=== PATIENT | female | born 1975 | race Asian ===

== ENCOUNTER 2017-04-05 06:05 | Inpatient (IN) | payer OTHER ==
[2017-04-05 08:43] VITALS: BMI 33.7
[2017-04-05] MEDS ORDERED: ELECTROLYTE-148 SOLN 1,000 ML IV SCH (08:45)
--- NOTE | 2017-04-05 08:48 | HP ---
Past Medical History - Primary Care Physician PCP:: Matt Guerrero - Admission Chief Complaint: 41yo P1 with at EGA 39w 3d admitted with spontaneous labor. 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: No: Alzheimer's, CVA, Dementia, Migraine, Multiple Sclerosis, Peripheral Neuropathy, Parkinson's, Seizure, Syncope, TIA, Vertigo, Other Cardiovascular: No: AFIB, Aneurysm, Aortic Insufficiency, Aortic Stenosis, CAD, CHF, Deep Vein Thrombosis, HTN, Hyperlipdemia, TN, Mitral Insufficiency, Mitral Stenosis, Murmur, Pulmonary Hypertension, Other Pulmonary: No: Asthma, Bronchitis, Cancer, COPD, O2 Dependent, Pneumonia, Previously Intubated, Pulmonary Embolus, Pulmonary Fibrosis, Sleep Apnea, Other Gastrointestinal: No: Ascites, Cancer, Constipation, Crohn's Disease, Diverticulitis, Diverticulosis, Esophageal Varices, Gastritis, GERD, GI Bleed, Hemorrhoids, Hiatal Hernia, Inflamatory Bowel Disease, Irritable Bowel Disease, Pancreatitis, Peptic Ulcer Disease, Ulcerative Colitis, Other Hepatobiliary: No: Cirrhosis, Cholelithiasis, Cholecystitis, Choledocholithiasis , Hepatitis A, Hepatitis B, Hepatitis C, Other Renal/: No: Renal Failure, Renal Inusuff, BPH, Cancer, Hematuria, Hemodialysis , Neurogenic Bladder, Renal Calculi, UTI, Other ...Para: 1 ...Induced : 1 Heme/Onc: Yes: Anemia Infectious Disease: No: AIDS, C-Diff, Herpes Zoster, HIV, MRSA, STD's, Tuberculosis, VREF, Other Psych: No: Addictions, Anxiety, Bipolar, Depression, Panic, Psychosis, Schizophrenia, Other Musculoskeletal: No: Bursitis, Chronic low back pain, Hemiparesis, Hemiplegia, Osteoarthritis, Paraplegia, Other Rheumatology: No: Fibromyalgia, Gout, Lupus, Rheumatoid Arthritis, Sarcoidosis, Vasculitis, Other ENT: No: Allergic Rhinitis, Sinusitis, Other Endocrine: No: Lancaster's Disease, Jericho's Disease, Diabetes Insipidus, Diabetes Mellitus, Hyperparathyroidism, Hyperthyroidism, Hypothyroidism, Osteopenia, SIADH, Other Dermatology: No: Basal Cell, Cellulitis, Eczema, Melanoma, Psoriasis, Squamous Cell, Other - Past Surgical History Past Surgical History: Yes: Mastectomy Hx Myomectomy: No Hx Transabdominal Cerclage: No Additional Surgical History: D&E x 1 - Smoking History Smoking history: Never smoked Have you smoked in the past 12 months: No - Alcohol/Substance Use Hx Alcohol Use: No History of Substance Use: reports: None - Social History Usual Living Arrangement: Yes: With Spouse, With Child ADL: Independent 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 History of Recent Travel: No Home Medications - Allergies Allergies/Adverse Reactions: Allergies Allergy/AdvReac Type Severity Reaction Status Date / Time No Known Allergies Allergy Verified 02/23/17 13:51 - Home Medications Home Medications: Ambulatory Orders Vit #108/Iron/FA [ One Tablet] 1 tab PO DAILY 02/23/17 Family Disease History - Family Disease History Family History: Unremarkable Review of Systems - Review of Systems Constitutional: reports: Other (labor) Eyes: reports: No Symptoms HENT: reports: No Symptoms Neck: reports: No Symptoms Cardiovascular: reports: No Symptoms Respiratory: reports: No Symptoms Gastrointestinal: reports: No Symptoms Genitourinary: reports: No Symptoms Breasts: reports: No Symptoms Reported Musculoskeletal: reports: No Symptoms Integumentary: reports: No Symptoms Neurological: reports: No Symptoms Endocrine: reports: No Symptoms Hematology/Lymphatic: reports: No Symptoms Psychiatric: reports: No Symptoms Pain Intensity: 8 Physical Exam - Maternity Vital Signs: Vital Signs Temperature 98.2 F 04/05/17 08:24 Pulse Rate 96 H 04/05/17 08:24 Respiratory Rate 20 04/05/17 08:24 Blood Pressure 128/76 04/05/17 08:24 O2 Sat by Pulse Oximetry (%) Constitutional: Yes: Well Nourished, No Distress, Calm Eyes: Yes: WNL, Conjunctiva Clear HENT: Yes: WNL, Atraumatic, Normocephalic Neck: Yes: WNL, Supple, Trachea Midline Cardiovascular: Yes: WNL, Regular Rate and Rhythm Lungs: Clear to auscultation, Normal air movement Breast(s): Yes: WNL - Abdominal Exam/OB Fundal Height: 39 Number of Fetuses: Single Presentation: Vertex Contractions: Yes Regularity: Regular Intensity: Moderate Monitor Mode: External Heart Rate (range): 145 Heart Rate Location: Midline Category: I Accelerations: Non-Uniform Decelerations: None - Vaginal Exam/OB Vaginal Bleediing: No Speculum Exam: No Dilatation (cm): 4 Effacement (%): 80 Amniotic Membrane Status: Intact Presentation: Vertex/Position Station: -3 (Adequate gynecoid pelvimetry) - Physical Exam Musculoskeletal: Yes: WNL Extremities: Yes: WNL Edema: No Integumentary: Yes: WNL Deep Tendon Reflex Grade: Normal +2 ...Motor Strength: WNL Psychiatric: Yes: WNL, Alert, Oriented Hemorrhage Risk Assessment - Risk Factors Medium Risk Factors: Yes: None High Risk Factors: Yes: None Risk Score: 1 Risk Level: Medium Risk Imaging - Results Ultrasound: Report Reviewed Assessment/Plan 41yo P1 with at EGA 39w 3d admitted with spontaneous labor. Patient is in early active labor. Fetus with Category I tracing and requires no intervention. Pt requested epidural for pain mgt. Plan to monitor labor progress. Anesthesia consulted.
[2017-04-05 08:54] LABS: BASOPHIL 0.5 % (0-2.0); EOSINOPHIL 0.4 % (0-4.5); MCH 24.9 pg (25.7-33.7); MEAN CELL VOLUME 77.9 fl (80-96); NEUTROPHILS 88.2 % (42.8-82.8); PLATELET COUNT 284 K/MM3 (134-434); WHITE BLOOD COUNT 18.4 K/mm3 (4.0-10.0)
[2017-04-05] MEDS: FENTANYL/BUPIVACAINE/NS/PF - PCEA - 50 ML DISP.SYRIN EP SCH (09:00)
[2017-04-05 09:16] LABS: INR 1.13 (0.82-1.09); PROTHROMBIN TIME (PATIENT) 12.8 SEC (9.98-11.88)
[2017-04-05 09:18] LABS: ACTIVATED PTT 28.2 SECONDS (26.9-34.4)
[2017-04-05 09:21] LABS: ANION GAP 10 (8-16); CALCIUM 8.2 mg/dL (8.5-10.1); CO2 20 mmol/L (21-32); CREATININE 0.5 mg/dL (0.55-1.02); GLUCOSE,RANDOM 81 mg/dL (74-106)
[2017-04-05 19:58] LABS: BASOPHIL 0.2 % (0-2.0); EOSINOPHIL 0.3 % (0-4.5); MCH 25.4 pg (25.7-33.7); MCHC 32.3 g/dl (32.0-36.0); MEAN CELL VOLUME 78.4 fl (80-96); MEAN PLT VOLUME 7.2 fl (7.5-11.1); NEUTROPHILS 87.1 % (42.8-82.8); PLATELET COUNT 229 K/MM3 (134-434); RDW 16.8 % (11.6-15.6); WHITE BLOOD COUNT 15.9 K/mm3 (4.0-10.0)
[2017-04-05 20:45] LABS: ALBUMIN 1.7 g/dl (3.4-5.0); ALK PHOS 158 U/L (45-117); ANION GAP 8 (8-16); BILIRUBIN,TOTAL 0.4 mg/dL (0.2-1.0); CALCIUM 7.4 mg/dL (8.5-10.1); CO2 21 mmol/L (21-32); CREATININE 0.6 mg/dL (0.55-1.02); GLUCOSE,RANDOM 184 mg/dL (74-106); SGOT/AST 20 U/L (15-37); SGPT/ALT 26 U/L (12-78); TOT PROT 4.9 g/dl (6.4-8.2)
[2017-04-05] MEDS ORDERED: BENZOCAINE 20% 57 GM BOTTLE TP PRN (21:00)
[2017-04-05] MEDS ORDERED: BISACODYL 10 MG SUPP.RECT RC PRN (21:00)
[2017-04-05] MEDS ORDERED: METHYLERGONOVINE MALEATE 0.2 MG/1 ML AMP IM PRN (21:00)
[2017-04-05] MEDS ORDERED: BENZOCAINE 28 GM HEMORRHOIDAL OINTMENT TP PRN (21:00)
[2017-04-05] MEDS ORDERED: IBUPROFEN 600 MG TABLET (FP) PO PRN (21:00)
[2017-04-05] MEDS ORDERED: WITCH HAZEL 50% (TUCKS) 40 PAD/JAR PAD TP PRN (21:00)
--- NOTE | 2017-04-05 21:00 | PN ---
Delivery - Delivery Vaginal Delivery: No Problems, Spontaneous Type of Anesthesia: Epidural Episiotomy/Laceration: None EBL (cc): 300 Delivery, Single - Stages of Labor Date 1st Stage Initiatied: 04/05/17 Time 1st Stage Initiated: 03:00 Date 2nd Stage Initiated: 04/05/17 Time 2nd Stage Initiated: 12:30 Date of Delivery: 04/05/17 Time of Delivery: 12:54 Time Placenta Delivered: 13:00 Placenta: Yes: Spontaneous, Normal Configuration - Condition of Boring Machine Set Up Operator Jig/Grief Counselor Present: No Infant Gender: Female Weight: 3.685 kg Position: Left, OA Total Hours ROM (Hrs/Mins): 3H3M - 1 Minute Total Score: 9 5 Minutes Total Score: 9 - [place] Feeding Plan Initial Plan: Elected not to breastfeed exclusively throughout hospitalization Remarks - Remarks Remarks: Normal labor and uncomplicated delivery
[2017-04-06 08:34] LABS: BASOPHIL 0.4 % (0-2.0); EOSINOPHIL 1.2 % (0-4.5); MEAN CELL VOLUME 78.3 fl (80-96); MEAN PLT VOLUME 7.1 fl (7.5-11.1); NEUTROPHILS 79.6 % (42.8-82.8); PLATELET COUNT 233 K/MM3 (134-434); RDW 16.4 % (11.6-15.6)
--- NOTE | 2017-04-06 09:40 | CON.CARD ---
Consult Consult Specialty:: Cardiology Referred by:: Dr. Guerrero Reason for Consultation:: Tachycardia - History of Present Illness Chief Complaint: , tachycardia History of Present Illness: 41 year old woman h/o breast Ca s/p chemo and RT, now s/p uncomplicated yesterday noted to have persistent sinus tachycardia during labor and after up to approximately 130bpm, as well as mild dyspnea. Pt was on pitocin after delivery and had received approximately 3L IVF with an approx 300cc blood loss during labor. Pt EKG after delivery confirmed sinus tach at 130bpm. Pt did note mild dyspnea walking to the bathroom after delivery but no sob at rest and no chest pain. Pitocin and IVF were stopped yesterday evening and over the course of the night her heart rate trend gradually came down to her baseline during of low 100s. Cxray done last night showed normal lung [place] and normal sized cardiac silhouette. Pt was seen and examined today in [facility]. She states she is feeling better today. No further dyspnea, no longer feels heart racing or palpitaitons. No chest pain. She has had mild b/l LE edema which is unchanged. No pnd, orthopnea. No lightheadedness or dizziness. 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 Loss, Weakness, Other Eyes: denies: No Symptoms, Blind Spots, Blurred Vision, Double Vision, Eye Pain , Floaters, Photophobia, Recent Change in Vision, Other HENT: denies: No Symptoms, Difficult Swallowing, Ear Discharge, Ear Pain, Epistaxis, Gingival Bleeding, Hearing Loss, Mouth Swelling, Nasal Congestion, Ocular Prosthesis, Throat Pain, Toothache, Ringing in Ears, Other Neck: denies: No Symptoms, Decreased ROM, Lumps, Pain on Movement, Stiffness, Swollen Glands, Tenderness, Other Cardiovascular: reports: Edema, Palpitations, Shortness of Breath. denies: No Symptoms, Chest Pain, Other Respiratory: reports: SOB, SOB on Exertion. denies: No Symptoms, Cough, Exercise Intolerance, Hemoptysis, Orthopnea, PND, Snoring, Wheezing, Other Gastrointestinal: denies: No Symptoms, Abdominal Pain, Bloating, Constipation, Diarrhea, Dysphagia, Indigestion, Melena, Nausea, Rectal Bleeding, Vomiting, Vomiting Blood, Other Genitourinary: denies: No Symptoms, Burning, Discharge, Dysuria, Flank Pain, Frequency, Hematuria, Incontinence, Lesions, Menses, Pain, Testicular Mass, Testicular Pain, Testicular Swelling, Urgency, Vaginal Bleeding, Other Breasts: denies: No Symptoms Reported, See HPI, Breast Implants, Discharge from Nipple, Lumps, Pain, Skin Changes, Other Musculoskeletal: denies: No Symptoms, Back Pain, Crepitus, Decreased ROM, Extremity Pain, Joint Pain, Joint Swelling, Muscle Pain, Muscle Cramps, Muscle Weakness, Other Integumentary: denies: No Symptoms, Blister, Bruising, Change in Color, Eczema, Erythema, Incision, Lesions, Lump, Pallor, Pruritis, Rash, Wound, Other Neurological: denies: No Symptoms, Change in LOC, Change in Speech, Confusion, Dizziness, Headache, Incoordination, Numbness, Parasthesia, Pre-Existing Deficit , Seizure, Syncope, Tremors, Unsteady Gait, Weakness, Other Endocrine: denies: No Symptoms, Excessive Sweating, Flushing, Increased Hunger, Increased Thirst, Intolerance to Cold, Intolerance to Heat, Unexplained Weight Gain, Unexplained Weight Loss, Other Hematology/Lymphatic: denies: No Symptoms, Easily Bruised, Excessive Bleeding, Swollen Glands, Other Psychiatric: denies: No Symptoms, Altered Sleep Pattern, Anxiety, Depression, Hallucinations, Panic, Paranoia, Suicidal, Other Vital Signs: Vital Signs Temperature 97.2 F L 04/06/17 05:53 Pulse Rate 109 H 04/06/17 05:53 Respiratory Rate 20 04/06/17 05:53 Blood Pressure 106/64 04/06/17 05:53 O2 Sat by Pulse Oximetry (%) 100 04/05/17 09:10 Constitutional: Yes: Well Nourished, No Distress, Calm Eyes: Yes: WNL, Conjunctiva Clear, EOM Intact, PERRL HENT: Yes: WNL, Atraumatic, Normocephalic Neck: Yes: WNL, Supple, Trachea Midline Respiratory: Yes: WNL, Regular, CTA Bilaterally. No: Rales, Rhonchi, SOB, Wheezes Gastrointestinal: Yes: WNL, Normal Bowel Sounds, Soft. No: Distention, Tenderness Renal/: Yes: WNL Cardiovascular: Yes: Tachycardia. No: Bradycardia, Pulse Irregular, Gallop, Rub , Varicosities JVD: No Carotid Bruit: No PMI: Non-Displaced Heart Sounds: Yes: S1, S2. No: Split S2, S3, S4, Clicks, Gallop, Rub, Bruit Murmur: No: Systolic Murmur, Diastolic Murmur Musculoskeletal: Yes: WNL Extremities: Yes: WNL Edema: Yes Edema: LLE: Trace, RLE: Trace Peripheral Pulses WNL: Yes Peripheral Pulses: 2+ Left Doralis Pedis, 2+ Right Dorsalis Pedis Integumentary: Yes: WNL Neurological: Yes: Alert, Oriented Psychiatric: Yes: Alert, Oriented - Other Data Labs, Other Data: CBC, BMP 04/06/17 08:00 04/05/17 19:10 INR, PTT INR 1.13 (0.82-1.09) 04/05/17 08:31 EKG 04/05/17-Sinus tach 130bpm, no sig ST abnl Echo: Pending, Image Reviewed Imaging - Results Chest X-ray: Report Reviewed, Image Reviewed EKG: Report Reviewed, Image Reviewed Other: Report Reviewed, Image Reviewed Assessment/Plan 41 year old woman h/o breast Ca s/p chemo and RT, now s/p uncomplicated yesterday noted to have persistent sinus tachycardia during labor and after up to approximately 130bpm, as well as mild dyspnea. Pt was on pitocin after delivery and had received approximately 3L IVF with an approx 300cc blood loss during labor. Pt EKG after delivery confirmed sinus tach at 130bpm. Pt did note mild dyspnea walking to the bathroom after delivery but no sob at rest and no chest pain. Pitocin and IVF were stopped yesterday evening and over the course of the night her heart rate trend gradually came down to her baseline during of low 100s. Cxray done last night showed normal lung mil[place] and normal sized cardiac silhouette. Pt was seen and examined today in [facility]. She states she is feeling better today. No further dyspnea, no longer feels heart racing or palpitaitons. No chest pain. She has had mild b/l LE edema which is unchanged. No pnd, orthopnea. No lightheadedness or dizziness. Tachycardia-Sinus tach up to 130sbpm while on pitocin, has improved to baseline mild sinus tach low 100s overnight and this am -Cxray clear as above -pt currently asymptomatic, no further feeling of hear racing or palpitations and no further dyspnea -SaO2 100% on room air -Echo images reviewed this am, overall normal structural heart, normal LV function no sig valvular abnl -pts baseline was mild sinus tach 100s-110s throughout -most likely this was a normal physiologic response to labor and delivery and possible contribution from pitocin post -pt has returned to baseline, unlikely peripartum cardiomyopathy based on echo today, Cxray and rapid improvement, unlikely pulmonary embolism, dyspnea resolved, no chest pain, heart rate returned to baseline, SaO2 100% on room air -would hold off on CTA chest to rule out PE unless pt becomes symptomatic or if persistent sinus tach recurs -repeat EKG today -would not treat sinus tach specifically with medication -TFTs were normal 08/2016, can consider repeating -routine monitoring at this point -will follow until discharge
[2017-04-06] MEDS: PRENATAL VITAMINS W/ FOLIC ACID TABLET (FP) PO SCH (09:45)
[2017-04-06] MEDS: ACETAMINOPHEN 325 MG TABLET (FP) PO PRN ×2 (09:45→23:49)
[2017-04-06] MEDS: FENTANYL/BUPIVACAINE/NS/PF - PCEA - 50 ML DISP.SYRIN EP SCH (10:54)
--- NOTE | 2017-04-06 11:32 | EKG ---
Test Reason : Blood Pressure : / mmHG Vent. Rate : 103 BPM Atrial Rate : 103 BPM P-R Int : 140 ms QRS Dur : 068 ms QT Int : 344 ms P-R-T Axes : 061 055 014 degrees QTc Int : 450 ms SINUS TACHYCARDIA OTHERWISE NORMAL ECG NO PREVIOUS ECGS AVAILABLE Confirmed by YAN GILBERT MD ([id number]) on 04/06/2017 11:32:34 AM Referred By: Confirmed By:YAN GILBERT MD
[2017-04-06] MEDS ORDERED: SENNOSIDES/DOCUSATE COMBO (SENNA PLUS) TABLET (UD) PO PRN (22:00)
--- NOTE | 2017-04-07 07:48 | DS ---
Physical Exam-ENT PHYSICIAN Vital Signs: Vital Signs Temperature 98.1 F 04/06/17 21:54 Pulse Rate 101 H 04/06/17 21:54 Respiratory Rate 17 04/06/17 21:54 Blood Pressure 116/71 04/06/17 21:54 O2 Sat by Pulse Oximetry (%) 100 04/05/17 09:10 Constitutional: Yes: Well Nourished, No Distress, Calm Eyes: Yes: WNL, Conjunctiva Clear, EOM Intact HENT: Yes: WNL, Atraumatic, Normocephalic Neck: Yes: WNL, Supple, Trachea Midline Cardiovascular: Yes: WNL, Regular Rate and Rhythm Respiratory: Yes: WNL, Regular, CTA Bilaterally Gastrointestinal: Yes: WNL ...Rectal Exam: Yes: WNL Renal/: Yes: WNL ....Post : Yes: Uterus firm, Uterus non-tender, Slight lochia rubra Breast(s): Yes: WNL Musculoskeletal: Yes: WNL Extremities: Yes: WNL Edema: No Integumentary: Yes: WNL Neurological: Yes: WNL, Alert, Oriented ...Motor Strength: WNL Psychiatric: Yes: WNL, Alert, Oriented Labs: CBC, BMP 04/06/17 08:00 04/05/17 19:10 Delivery - Delivery Vaginal Delivery: No Problems, Spontaneous Type of Anesthesia: Epidural Episiotomy/Laceration: None EBL (cc): 300 Delivery, Single - Stages of Labor Date 1st Stage Initiatied: 04/05/17 Time 1st Stage Initiated: 03:00 Date 2nd Stage Initiated: 04/05/17 Time 2nd Stage Initiated: 12:30 Date of Delivery: 04/05/17 Time of Delivery: 12:54 Time Placenta Delivered: 13:00 Placenta: Yes: Spontaneous, Normal Configuration - 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 of Skull 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/Wood 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 Apprentice Present: No Infant Gender: Female Weight: 8 lb 2 oz Position: Left, OA Total Hours ROM (Hrs/Mins): 3H3M - 1 Minute Total Score: 9 5 Minutes Total Score: 9 - Feeding Plan Initial Plan: Elected not to breastfeed exclusively throughout hospitalization Discharge Summary Reason For Visit: LABOR Procedures: Principal: Condition: Good - Instructions Diet, Activity, Other Instructions: regular diet, follow up office 4 weeks Referrals: Matt Guerrero MD [Staff Physician] - Disposition: HOME - Home Medications Comprehensive Discharge Medication List: Ambulatory Orders Vit #108/Iron/FA [ One Tablet] 1 tab PO DAILY 02/23/17 Ibuprofen [Motrin -] 600 mg PO QID #28 tablet 04/07/17
[2017-04-07] MEDS: PRENATAL VITAMINS W/ FOLIC ACID TABLET (FP) PO SCH (09:08)
--- NOTE | 2017-04-07 10:12 | PN ---
Progress Note, Physician History of Present Illness: seen and examined today in [facility]. feeling much better. planned for discharge today. no palpitations, no sob, no chest pain, still has mild b/l LE edema. - Current Medication List Current Medications: Active Medications Acetaminophen (Tylenol -) 650 mg PO Q3H PRN PRN Reason: PAIN Last Admin: 04/06/17 23:49 Dose: 650 mg Benzocaine (Americaine 20% [place] -) 1 spray TP PRN PRN PRN Reason: PAIN Benzocaine (Americaine Ointment -) 1 applic TP PRN PRN PRN Reason: PAIN Bisacodyl (Dulcolax Suppository -) 10 mg RC PRN PRN PRN Reason: CONSTIPATION Ibuprofen (Motrin -) 600 mg PO Q4H PRN PRN Reason: PAIN Last Admin: 04/06/17 23:48 Dose: 600 mg Methylergonovine Maleate (Methergine Injection -) 0.2 mg IM Q4H PRN PRN Reason: EXCESSIVE BLEEDING (L&D) Multivit/Folic Acid/Iron ( Vitamins (Sjr) -) 1 tab PO DAILY NISHANT Last Admin: 04/07/17 09:08 Dose: 1 tab Senna/Docusate Sodium (Pericolace -) 2 tablet PO HS PRN PRN Reason: CONSTIPATION Witch Ema/Glycerin (Tucks Pads -) 1 pad TP PRN PRN PRN Reason: PAIN - Objective Vital Signs: Vital Signs Temperature 97.7 F 04/07/17 09:32 Pulse Rate 88 04/07/17 09:32 Respiratory Rate 20 04/07/17 09:32 Blood Pressure 116/77 04/07/17 09:32 O2 Sat by Pulse Oximetry (%) 100 04/05/17 09:10 Constitutional: Yes: Well Nourished, No Distress, Calm Eyes: Yes: Conjunctiva Clear, EOM Intact HENT: Yes: Atraumatic, Normocephalic Neck: Yes: Supple, Trachea Midline Cardiovascular: Yes: Regular Rate and Rhythm, S1, S2. No: Bradycardia, Tachycardia, Pulse Irregular, Bruit, JVD, Gallop, Murmur, S3, S4, Varicosities Respiratory: Yes: Regular, CTA Bilaterally Gastrointestinal: Yes: Normal Bowel Sounds, Soft Edema: LLE: Trace, RLE: Trace Neurological: Yes: Alert, Oriented Psychiatric: Yes: Alert, Oriented Labs: CBC, BMP 04/06/17 08:00 04/05/17 19:10 INR, PTT INR 1.13 (0.82-1.09) 04/05/17 08:31 - ....Imaging Chest X-ray: Report Reviewed, Image Reviewed EKG: Report Reviewed, Image Reviewed Other: Report Reviewed, Image Reviewed Assessment/Plan 41 year old woman h/o breast Ca s/p chemo and RT, now s/p uncomplicated yesterday noted to have persistent sinus tachycardia during labor and after up to approximately 130bpm, as well as mild dyspnea. Pt was on pitocin after delivery and had received approximately 3L IVF with an approx 300cc blood loss during labor. Pt EKG after delivery confirmed sinus tach at 130bpm. Pt did note mild dyspnea walking to the bathroom after delivery but no sob at rest and no chest pain. Pitocin and IVF were stopped yesterday evening and over the course of the night her heart rate trend gradually came down to her baseline during of low 100s. Cxray done last night showed normal lung mil[place] and normal sized cardiac silhouette. Pt was seen and examined today in [facility]. She states she is feeling better today. No further dyspnea, no longer feels heart racing or palpitaitons. No chest pain. She has had mild b/l LE edema which is unchanged. No pnd, orthopnea. No lightheadedness or dizziness. Tachycardia-Sinus tach up to 130sbpm improved back to baseline 88bpm this am and 90-100s overnight. -echo yesterday showed normal structural heart -EKG yesterday Sinus tach 105bpm, no ST abnl -pt feels well -ok from a cardiac standpoint for discharge home today -mild b/l LE edema likely due to , she will wear ADRIANA stockings until improves, keep legs elevated when possible -pt will call with any issues
[2017-04-07 13:51] VITALS: BP 136/69; PULSE 110; TEMP 98.9
--- NOTE | 2017-04-10 15:11 | EKG ---
Test Reason : Blood Pressure : / mmHG Vent. Rate : 128 BPM Atrial Rate : 128 BPM P-R Int : 134 ms QRS Dur : 070 ms QT Int : 308 ms P-R-T Axes : 064 061 026 degrees QTc Int : 449 ms SINUS TACHYCARDIA OTHERWISE NORMAL ECG NO PREVIOUS ECGS AVAILABLE Confirmed by GONZÁLEZ GOLDBERG MD ([id number]) on 04/10/2017 3:11:06 PM Referred By: Confirmed By:GONZÁLEZ GOLDBERG MD
== END 2017-04-07 15:20 | disposition home or self-care (01) | DRG 775 ==
LOC: JDEL 06:05 → JLDR 07:35 → J3W 14:30
PROVIDERS: ADMIT Obstetrics & Gynecology; ATTEND Obstetrics & Gynecology
PROC: 10E0XZZ Delivery of Products of Conception, External Approach (ICD-10-PCS; principal; 2017-04-05)
DX: O76 Abnormality in fetal heart rate and rhythm complicating labor and delivery (principal); Z3A.39 39 weeks gestation of pregnancy; Z37.0 Single live birth
CPT/HCPCS: 36415; 59409; 71020-TC; 80048; 80053; 85025; 85610; 85730; 86593; 86850; 86900; 86901; 93005; 93010; 93306-TC

== ENCOUNTER → 2020-03-10 | Day surgery (SDC) | payer OTHER | END | disposition home or self-care (01) | LOC: JRADIR 09:42 | PROVIDERS: ATTEND Internal Medicine | PROC: 07B63ZX Excision of Left Axillary Lymphatic, Percutaneous Approach, Diagnostic (ICD-10-PCS; principal; 2020-03-10) | DX: D36.0 Benign neoplasm of lymph nodes (principal); Z85.3 Personal history of malignant neoplasm of breast | CPT/HCPCS: 19083; 38505; 76942; 87899; 88305-TC; 88342-TC; A4648 ==